=== PATIENT | male | born 1960 | race Caucasian/White ===

== ENCOUNTER 2020-09-12 20:00 | Emergency (ER) | payer BC, SELFPAY ==
[2020-09-12 20:02] VITALS: BP 181/101; PULSE 94; RESP 18; TEMP 36.6; O2SAT 97; BMI 29.0
--- NOTE | 2020-09-12 20:13 | XRR_ITS ---
PROCEDURE INFORMATION: Exam: XR Right Knee Exam date and time: 09/12/2020 8:49 PM Age: 59 years old Clinical indication: Injury or trauma; Fall; Sprain or strain; Patella or knee; Right TECHNIQUE: Imaging protocol: XR Right knee. Views: 3 views. COMPARISON: No relevant prior studies available. FINDINGS: Bones/joints: Mildly displaced spiral fracture proximal diaphysis right fibula. Soft tissues: No visible subcutaneous emphysema or radiopaque foreign body. XR/XR knee RT 3V* [id number] IMPRESSION: Mildly displaced spiral fracture proximal diaphysis right fibula.
--- NOTE | 2020-09-12 20:13 | XRR_ITS ---
PROCEDURE INFORMATION: Exam: XR Right Ankle Exam date and time: 09/12/2020 8:45 PM Age: 59 years old Clinical indication: Injury or trauma; Fall; Sprain or strain; Ankle; Right TECHNIQUE: Imaging protocol: XR Right ankle. Views: 3 or more views. COMPARISON: No relevant prior studies available. FINDINGS: Bones/joints: Displaced avulsion fracture of the fibular tubercle of the distal right tibia. Nondisplaced avulsion fracture posterior malleolus distal right tibia. Lateral ankle mortise dislocation of 6 mm. Lateral malleolus intact. Soft tissues: Soft tissue swelling. XR/XR ankle RT min 3V* [id number] IMPRESSION: Fracture dislocation right ankle as detailed in text.
[2020-09-12 21:06] VITALS: BP 165/108; PULSE 87; RESP 20; O2SAT 98
--- NOTE | 2020-09-12 21:23 | W.ED.FALL ---
HPI - Fall General: Chief Complaint: Fall Stated Complaint: fall ankle injury Time Seen by Provider: 09/12/20 20:05 Source: patient and EMS Mode of arrival: EMS Limitations: no limitations History of Present Illness: HPI Narrative: 59-year-old male with a prior CVA. Patient states that since his CVA he occasionally gets the right side of his body locking up with difficulty moving. He states he was outside and was trying to get into the house when the right side of his body locked up again and he fell. He complains of pain to his right ankle and knee. Most of his pain is in the right ankle. He does have some deformity of the right ankle. He is unable to bear weight. MD complaint: fall Onset (ago): hour(s) (1) Fall from: standing Fall witnessed: no Place fall occurred: home Loss of consciousness: None Prolonged down time: no Symptoms prior to fall: none Context: tripped/slipped Location of injury - extremities: Right: knee and ankle Severity scale (1-10): 10 Quality: sharp Associated symptoms-after fall: Denies abdominal pain, chest pain, confusion, difficulty walking, headache(s), hematuria, lightheadedness, neck pain, numbness, short of breath, vertigo or weakness Review of Systems General: Reports: 10 or more systems reviewed and unremarkable except in HPI and below Const: Denies: fever(s), chills or body aches Eyes: Denies: change in vision or blurry vision ENMT: Denies: throat pain, enlarged tonsils, odynophagia, hoarseness, mouth pain or swelling of lips/tongue Card: Denies: chest pain or lightheadedness Resp: Denies: dyspnea, productive cough or non-productive cough GI: Denies: abdominal pain : Denies: hematuria Musc: Reports: extremity pain, extremity swelling and joint pain; Denies: neck pain Skin/Breast: Denies: rash, pruritus or erythema Neuro: Denies: headache(s), difficulty walking, vertigo or confusion Endo: Denies: polyuria, polydipsia or tired all the time Physical Exam Const: COMMON NORMALS: no acute distress, average body habitus, patient oriented x3, no limitations, healthy appearing, alert and well nourished HENMT: COMMON NORMALS: normocephalic, atraumatic and moist oral mucous membranes HEAD & SCALP: normocephalic and atraumatic Eye: COMMON NORMALS: Equal, round and reactive pupils present, EOMs intact bilaterally, conjunctivae normal and no scleral icterus CONJUNCTIVA: Yes conjunctivae normal PUPIL: Yes Equal, round and reactive pupils present Neck/C-Spine: COMMON NORMALS: full ROM, supple, no meningeal signs, no JVD and No carotid bruits Chest: COMMONS NORMALS: normal inspection of the chest and normal palpation of entire chest wall Resp: COMMON NORMALS: normal respiratory effort, No retractions, No use of accessory muscles, clear to auscultation bilaterally and percussion normal AUSCULTATION: clear to auscultation bilaterally PERCUSSION: percussion normal Cardio: COMMON NORMALS: no JVD, regular rate, regular rhythm, S1 normal heart sound present, S2 normal heart sound present, No gallops present (Cardio), No clicks present (Cardio), No murmurs present (Cardio), No rub (Cardio) and Peripheral pulses 2+ throughout RATE: regular rate RHYTHM: regular rhythm HEART SOUNDS: S1 normal heart sound present and S2 normal heart sound present PERIPHERAL PULSES: Peripheral pulses 2+ throughout GI: COMMON NORMALS: Normal to inspection, nondistended, normoactive bowel sounds present, Soft to palpation, non-tender, No hepatosplenomegaly present, no masses and no bruits PALPATION: Yes Soft to palpation and Yes No hepatosplenomegaly present Extremity: COMMON NORMALS: normal to inspection, full ROM, capillary refill normal, no calf tenderness and no pedal edema RIGHT LOWER EXTREMITY: Yes knee joint (Mild tenderness laterally) and Yes foot & digits (Right ankle swollen, mild deformity, marked tenderness and reduced range of motion) Right ankle: Yes ROM Neuro: COMMON NORMALS: patient oriented x3 SENSORIUM/ORIENTATION: Yes alert MENINGEAL SIGNS: Yes no meningeal signs Skin: COMMON NORMALS: no rashes or lesions noted, no wounds, turgor normal, no jaundice, no petechiae and no mottling GENERAL SKIN EXAM: no rashes or lesions noted and turgor normal Procedures Orthopedic Splinting/Casting Injury #1: Side: right Lower Extremity Injury Location: knee and ankle Lower Extremity Immobilizer: posterior splint and stirrup splint Other Orthopedic Equipment: crutches Additional Comments: Procedure performed by me and i was assisted by the nurse. Course ED course: Patient with some alcohol fracture dislocation and a right proximal fibular fracture. Posterior leg splint with stirrup was applied. He has a prescription for tramadol and will not prescribe any pain medication. He will f/u with ortho in the clinic. Consultations: Consultation #1: Discussed the patient with Dr. Batista. He advised that I applied a splint discharge the patient. He will see the patient in the clinic. Time: 21:25 Vital Signs: Vital signs: Vital Signs Temperature 97.9 F 09/12/20 20:02 Pulse Rate 87 09/12/20 21:06 Respiratory Rate 20 H 09/12/20 21:06 Blood Pressure 165/108 09/12/20 21:06 Pulse Oximetry 98 09/12/20 21:06 MDM - Fall MDM Narrative: Medical decision making narrative: 59-year-old male with fracture dislocation of his right ankle and a proximal right fibula fracture. Splint applied and he is discharged home to follow-up with the orthopedic surgeon. Medical Records: Attestation: I reviewed the patient's medical records. Imaging Data^: Xray Ortho: Attestation: I personally reviewed and interpreted this imaging study as follows: Radiologist's impression: [address] [place] [address] XRay Report Signed Patient: Willem Josue #: [id number] : 1960Acct#:[id number] Age/Sex: 59 / MADM Date: 09/12/20 Loc: ERRoom/Bed: Attending Dr: Ordering Provider/Ordering MD: Rachna Morrissey MD, [facility] [place] Date of Service: 09/12/20 Procedure(s): XR ankle RT min 3V* [id number] Accession Number(s): [id number] Report Number: [id number] PROCEDURE INFORMATION: Exam: XR Right Ankle Exam date and time: 09/12/2020 8:45 PM Age: 59 years old Clinical indication: Injury or trauma; Fall; Sprain or strain; Ankle; Right TECHNIQUE: Imaging protocol: XR Right ankle. Views: 3 or more views. COMPARISON: No relevant prior studies available. FINDINGS: Bones/joints: Displaced avulsion fracture of the fibular tubercle of the distal right tibia. Nondisplaced avulsion fracture posterior malleolus distal right tibia. Lateral ankle mortise dislocation of 6 mm. Lateral malleolus intact. Soft tissues: Soft tissue swelling. XR/XR ankle RT min 3V* [id number] IMPRESSION: Fracture dislocation right ankle as detailed in text. Dictated By:Rajendra Ramirez Signed By:Maya Ramirez Date/Time:09/12/202109 DD/ [address] [address] XRay Report Signed Patient: Willem Josue #: [id number] : 1960Acct#:[id number] Age/Sex: 59 / MADM Date: 09/12/20 Loc: ERRoom/Bed: Attending Dr: Ordering Provider/Ordering MD: Rachna Mrorissey MD, [facility] [place] Date of Service: 09/12/20 Procedure(s): XR knee RT 3V* [id number] Accession Number(s): [id number] Report Number: [id number] PROCEDURE INFORMATION: Exam: XR Right Knee Exam date and time: 09/12/2020 8:49 PM Age: 59 years old Clinical indication: Injury or trauma; Fall; Sprain or strain; Patella or knee; Right TECHNIQUE: Imaging protocol: XR Right knee. Views: 3 views. COMPARISON: No relevant prior studies available. FINDINGS: Bones/joints: Mildly displaced spiral fracture proximal diaphysis right fibula. Soft tissues: No visible subcutaneous emphysema or radiopaque foreign body. XR/XR knee RT 3V* [id number] IMPRESSION: Mildly displaced spiral fracture proximal diaphysis right fibula. Dictated By:Rajendra Ramirez Signed By:Maya Ramirez Date/Time:09/12/202106 DD/ 04 Discharge Plan Discharge Patient Disposition: Home Clinical Impression: Closed fracture dislocation of ankle Qualifiers: Encounter type: initial encounter Laterality: right Qualified Code(s): S82.891A - Other fracture of right lower leg, initial encounter for closed fracture Fracture, fibula, proximal Qualifiers: Encounter type: initial encounter Fracture type: closed Fracture morphology: torus Laterality: right Qualified Code(s): S82.811A - Torus fracture of upper end of right fibula, initial encounter for closed fracture Condition: Stable Prescriptions: Continued tizanidine 4 mg tablet 2 mg PO BID PRN (Reason: MUSCLE SPASMS) RF: 0 meloxicam 15 mg tablet 15 mg PO DAILY RF: 0 valsartan 80 mg tablet 80 mg PO DAILY RF: 0 tramadol 50 mg tablet 50 mg PO BID PRN (Reason: Pain) RF: 0 Discharge Orders: Discharge Order (Routine); Ordered 09/12/20 Ordered By: Rachna Morrissey Referrals: Jalyn Diaz FNP [Primary Care Provider] - 1-3 days Xavier Batista MD [Physician] - 4-7 days Discharge Diet: Usual diet Discharge Activity: Resume usual activity Patient Instructions: Ankle Fracture (ED), Leg Fracture (ED), Splint Care (ED), Ankle Dislocation (ED) Activity Restrictions/Additional Instructions: Return for any new or worsening symptoms. Follow-up with your primary care provider within 3 days. You will be contacted by the disease case manager to schedule an appointment with the orthopedic surgeon for further evaluation and management. Keep the splint on for comfort. Continue tramadol as needed for pain Discharge Date/Time: 09/12/20 22:49 Coding Level of Care Code ED Manager Banquet for Charisse Fwd Exam Comprehensive
[2020-09-12] MEDS: HYDROcodone-acetaminophen 5-325 mg Tablet 1 TAB PO (22:05)
--- NOTE | 2020-09-13 08:47 | DCPLANNER ---
sap manager had message to schedule a follow up appointment for patient with ortho. sap manager called the ortho clinic, spoke with Ebonie, gave clinic patients information. sap manager was told that patients information would be printed and reviewed. Clinic will call patient with appointment information.
--- NOTE | 2020-09-14 09:37 | DCPLANNER ---
Patient has a follow up appointment scheduled for Thursday, September 14, 2020 at 11:[address] Sandoval. Clinic will call patient with appointment information.
--- NOTE | 2020-10-17 13:02 | DCPLANNER ---
Patient had a follow up appointment scheduled for 09.14.20 with ortho - patient did attend appointment.
== END 2020-09-12 22:49 | disposition home or self-care (01) ==
PROVIDERS: Emergency Provider Family Medicine; Family Provider Nurse Practitioner Family; PCP Nurse Practitioner Family
DX: S82.891A Other fracture of right lower leg, initial encounter for closed fracture (principal); S82.811A Torus fracture of upper end of right fibula, initial encounter for closed fracture; W19.XXXA Unspecified fall, initial encounter
CPT/HCPCS: 12345; 73562; 73610; 99281; 99283

== ENCOUNTER → 2020-09-14 12:43 | Outpatient (BNVA) | payer BC, SELFPAY | PROVIDERS: Family Provider Nurse Practitioner Family; PCP Nurse Practitioner Family; Visit Provider Orthopaedic Surgery | DX: S82.891A Other fracture of right lower leg, initial encounter for closed fracture (principal) | CPT/HCPCS: 87635 ==

== ENCOUNTER 2020-09-17 05:58 | Day surgery (SDC) | payer BC, SELFPAY ==
[2020-09-17] VITALS (10 sets, daily range): BP systolic 115–170; BP diastolic 85–126; PULSE 87–108; RESP 15–22; TEMP 36.6–36.9; O2SAT 95–99
--- NOTE | 2020-09-17 | SCC_ITS ---
Procedure Done: Right ORIF syndesmotic injury 20.1 seconds of fluoroscopic guidance, for a cumulative dose of 0.85 mGy, was provided to Dr. Sandoval by the radiology department. C-arm images of the RIGHT ankle were saved for the patient's permanent record. [facility]
--- NOTE | 2020-09-17 | XR_ITS ---
WS: [id number] INTRAOPERATIVE TECHNIQUE: 5 Spot fluoroscopic images for intraoperative purposes. FLUOROSCOPY TIME: 20.1 seconds CLINICAL INFORMATION: ORIF rt. ankle COMPARISON: None. FINDINGS: Intraoperative changes plate and screw fixation distal fibula with screw fixation across the syndesmo sis into the distal tibia. Fracture of the posterior malleolus XR/XR ankle RT min 3V* [id number] IMPRESSION: Images obtained for intraoperative purposes.
[2020-09-17] MEDS: sodium chloride 0.9% 1,000 ML 30 ML IV (06:33)
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
--- NOTE | 2020-09-17 06:39 | W.PM.OPSUD ---
Surgery/Procedure H&P Update DATE OF PROCEDURE: September 17, 2020 DATE H&P PERFORMED: 09/14/20 H&P UPDATE INFORMATION: I have reviewed H&P completed within last 30 days, I have examined patient prior to procedure and No changes to prior documentation PREOP DIAGNOSIS: Right ankle fracture PLANNED PROCEDURE: Operation Date: 09/17/20 07:00 Proposed Procedures p ORIF Ankle 81591 S82.891A(Right) - Trace Sandoval DO
--- NOTE | 2020-09-17 06:53 | ANES.PROC ---
Anesthesia Procedures Procedure/Date: 09/17/20 Nerve Block ^: Nerve Block 1: Main Anesthesia: general anesthesia Time Out Performed: Yes Consent: requested by attending/covering physician, from patient, from other, risks and benefits reviewed and patient agrees to proceed Nerve block location: popliteal (R) Anesthesia monitors applied: pulse oximetry, EKG, BP cuff and oxygen Nerve block position: supine Anesthetic Used: ropivicaine 0.5% and with decadron (4 mg) Amount of anesthesia used (mL): 30 Ultrasound used to: recognize landmarks Nerve Stimulator Used?: No Interscalene/Femoral BLK: 4 stimuplex 21 g needle used for position and inplane approach, visualize local anesthetic spread and no vascular puncture identified Injection: neg aspiration of heme and paresthesia +/- Patient Tolerated Procedure: well and no complications Complications: none Additional Comments: Patient has pre-existing R sided weakness from CVA in jul
--- NOTE | 2020-09-17 07:53 | P.OP_ITS ---
Operative Report Date of procedure: September 17, 2020 Pre-op Diagnosis: Right ankle fracture Post-op diagnosis: same Procedure Done: Right ORIF syndesmotic injury Surgeon: Trace Sandoval Anesthesia: General Estimated blood loss (mL): 5 Tourniquet time (min): 30 Condition: stable Disposition: PACU Procedure: Patient has a right syndesmotic injury with posterior malleolus fracture. Patient was taken to the OR placed in supine position or impingement were well-padded patient was prepped and draped in normal sterile fashion skin was made over the right fibula. [id number] reduction clamps were placed a 5 hole [employer] one third tubular plate was placed. 3 syndesmotic screws were placed across the syndesmosis this was done by using a 2 5 drill then placing 335 screws. AP mortise and lateral views of the ankle showed adequate addition of the fracture posterior malleolus fracture was reduced. Patient was then had a sterile dressings applied posterior splint applied patient was transferred to the PACU in stable condition
--- NOTE | 2020-09-17 08:05 | SUR.PHASEI ---
PT AWAKES AND KEEPS TAKING MASK OFF RUBBING NOSE, PT VERBALIZED NO PAIN OR NAUSEA, BUT REMAINS VERY SLEEPY RT FOOT ELEVATED, DRESSING D/I PT HAS NO FEELING TO RT FOOT ,PT HAD BLOCK PT DENIES PAIN AND DISTAL FOOT PINK WARM AND CAP REFILL LESS THAN 3 SECONDS.
--- NOTE | 2020-09-17 09:30 | ANE.PACU2 ---
Inpatient post-anesthesia follow up: Airway intact: Yes Vital signs: Temperature 97.8 F Pulse Rate 87 Respiratory Rate 18 Blood Pressure 170/89 Pulse Oximetry 97 Oxygen Delivery Me thod Room Air Oxygen Flow Rate 8 Fraction of Inspir ed Oxygen Hydration adequate: Yes Nausea and vomiting: No Pain level: 2 Mental status: Baseline
--- NOTE | 2020-09-18 06:43 | W.PM.OPSUD ---
Surgery/Procedure H&P Update DATE OF PROCEDURE: September 18, 2020 DATE H&P PERFORMED: 09/14/20 H&P UPDATE INFORMATION: I have reviewed H&P completed within last 30 days, I have examined patient prior to procedure and No changes to prior documentation PREOP DIAGNOSIS: Right ankle fracture PLANNED PROCEDURE: Operation Date: 09/17/20 07:00 Proposed Procedures p ORIF Ankle 81768 S82.891A(Right) - Trace Sandoval DO
--- NOTE | 2020-09-18 07:11 | W.PM.OPSUD ---
Surgery/Procedure H&P Update DATE OF PROCEDURE: September 18, 2020 DATE H&P PERFORMED: 09/14/20 H&P UPDATE INFORMATION: I have reviewed H&P completed within last 30 days, I have examined patient prior to procedure and No changes to prior documentation PREOP DIAGNOSIS: Right ankle fracture PLANNED PROCEDURE: Operation Date: 09/17/20 07:00 Proposed Procedures p ORIF Ankle 59392 S82.891A(Right) - Trace Sandoval DO
--- NOTE | 2020-09-18 07:11 | W.PM.OPSUD ---
Surgery/Procedure H&P Update DATE OF PROCEDURE: September 18, 2020 DATE H&P PERFORMED: 09/14/20 H&P UPDATE INFORMATION: I have reviewed H&P completed within last 30 days, I have examined patient prior to procedure and No changes to prior documentation PREOP DIAGNOSIS: Right ankle fracture PLANNED PROCEDURE: Operation Date: 09/17/20 07:00 Proposed Procedures p ORIF Ankle 03702 S82.891A(Right) - Trace Sandoval DO
== END 2020-09-17 09:30 | disposition home or self-care (01) ==
PROVIDERS: Family Provider Nurse Practitioner Family; PCP Nurse Practitioner Family; Visit Provider Orthopaedic Surgery
PROC: (CPT 27829; principal; 2020-09-17 07:00)
DX: S82.891A Other fracture of right lower leg, initial encounter for closed fracture (principal); X50.1XXA Overexertion from prolonged static or awkward postures, initial encounter; I10 Essential (primary) hypertension; I69.851 Hemiplegia and hemiparesis following other cerebrovascular disease affecting right dominant side; Z87.891 Personal history of nicotine dependence
CPT/HCPCS: 27829; 12345; 64450; 73610; 76000; 76942; 96374; C1713; J0690; J1100; J2250; J2370; J2405; J2704; J2795; J3010; J7030

== ENCOUNTER → 2020-10-02 13:48 | Outpatient (BNVA) | payer BC, SELFPAY | PROVIDERS: Family Provider Nurse Practitioner Family; PCP Nurse Practitioner Family; Visit Provider Orthopaedic Surgery | DX: Z48.89 Encounter for other specified surgical aftercare (principal); S82.291A Other fracture of shaft of right tibia, initial encounter for closed fracture; X58.XXXA Exposure to other specified factors, initial encounter | CPT/HCPCS: 73610 ==

== ENCOUNTER 2020-10-02 14:47 | Outpatient (CLI) | payer BC, SELFPAY | END 2020-10-02 14:48 | disposition home or self-care (01) | LOC: SPT 14:48 | PROVIDERS: Family Provider Nurse Practitioner Family; PCP Nurse Practitioner Family; Visit Provider Orthopaedic Surgery | DX: Z46.89 Encounter for fitting and adjustment of other specified devices (principal); S82.891D Other fracture of right lower leg, subsequent encounter for closed fracture with routine healing; X58.XXXD Exposure to other specified factors, subsequent encounter | CPT/HCPCS: 97760; L4361 ==

== ENCOUNTER → 2020-10-30 13:01 | Outpatient (BNVA) | payer BC, SELFPAY | PROVIDERS: Family Provider Nurse Practitioner Family; PCP Nurse Practitioner Family; Visit Provider Orthopaedic Surgery | DX: Z48.89 Encounter for other specified surgical aftercare (principal) | CPT/HCPCS: 73610 ==

== ENCOUNTER 2020-11-05 14:22 | Outpatient (RCR) | payer BC, SELFPAY | END 2020-11-15 23:59 | disposition home or self-care (01) | LOC: MPT 14:22 | PROVIDERS: PCP Nurse Practitioner Family; Referring Provider Orthopaedic Surgery; Visit Provider Orthopaedic Surgery | DX: S82.891D Other fracture of right lower leg, subsequent encounter for closed fracture with routine healing (principal); X58.XXXD Exposure to other specified factors, subsequent encounter | CPT/HCPCS: 97110; 97116; 97140; 97161 ==

== ENCOUNTER 2020-11-16 06:00 | Outpatient (RCR) | payer BC, SELFPAY | END 2020-12-16 23:59 | disposition home or self-care (01) | LOC: MPT 06:00 | PROVIDERS: PCP Nurse Practitioner Family; Referring Provider Orthopaedic Surgery; Visit Provider Orthopaedic Surgery | DX: S82.891D Other fracture of right lower leg, subsequent encounter for closed fracture with routine healing (principal); X58.XXXD Exposure to other specified factors, subsequent encounter | CPT/HCPCS: 97110; 97116; 97140 ==

== ENCOUNTER 2020-12-17 06:00 | Outpatient (RCR) | payer BC, SELFPAY | END 2021-01-13 23:59 | disposition home or self-care (01) | LOC: MPT 06:00 | PROVIDERS: PCP Nurse Practitioner Family; Referring Provider Orthopaedic Surgery; Visit Provider Orthopaedic Surgery | DX: S82.891D Other fracture of right lower leg, subsequent encounter for closed fracture with routine healing (principal); X58.XXXD Exposure to other specified factors, subsequent encounter | CPT/HCPCS: 97110; 97116; 97140 ==